=== PATIENT | male | born 1945 | race Caucasian/White ===

== ENCOUNTER 2024-01-12 08:16 | Emergency (ER) | payer MEDICARE, BC, SELFPAY ==
[2024-01-12] VITALS (21 sets, daily range): BP systolic 118–153; BP diastolic 67–87; PULSE 60–72; RESP 26; TEMP 36.4; O2SAT 84–99; BMI 35.3
--- NOTE | 2024-01-12 08:35 | ED_ITS ---
HPI - SOB/Dyspnea General Time Seen by Provider: 08:35 Date Seen: 01/12/24 Chief Complaint: Shortness of Breath/Dyspnea Stated Complaint: trouble breathing Time Seen by Provider: 01/12/24 08:34 Source: patient and RN notes reviewed Mode of arrival: ambulatory Limitations: no limitations History of Present Illness HPI Narrative: 78-year-old male who presents today with shortness of breath. Patient says this is been going on for the past 3 weeks but then notes that he was seen by his primary doctor for this a year ago. Has not noticed any recent changes in his s hortness of breath, and mostly just notices dyspnea on exertion. He does not note any shortness of breath when he is sleeping although he does have a CPAP that he wears. He denies chest pain or lower extremity swelling. Denies nausea vomiting. Reports history of previous lobectomy for lung cancer and long history of smoking although quit years ago. Related Data Home Medications Medication Instructions Recorded Confirmed allopurinol 100 mg tablet 100 mg PO QDAY 10/29/23 11/18/23 amlodipine 10 mg tablet 10 mg PO QDAY 10/29/23 11/18/23 apixaban 2.5 mg tablet (Eliquis) 2.5 mg PO BID 10/29/23 11/18/23 atorvastatin 10 mg tablet 10 mg PO QDAY 10/29/23 11/18/23 empagliflozin 10 mg tablet 10 mg PO QAM 10/29/23 11/18/23 furosemide 20 mg tablet 20 mg PO QAM 10/29/23 11/18/23 glipizide 5 mg tablet 5 mg PO QDAY 10/29/23 11/18/23 hydralazine 10 mg tablet 10 mg PO BID 10/29/23 11/18/23 lisinopril 5 mg tablet 5 mg PO QDAY 10/29/23 11/18/23 tamsulosin 0.4 mg capsule (Flomax) 0.4 mg PO QDAY 10/29/23 11/18/23 Previous Rx's Medication Instructions Recorded albuterol sulfate 90 mcg/actuation 2 inh inhalation Q4H PRN shortness 01/12/24 aerosol inhaler of breath or wheezing #8.5 grams fluticasone propionate 50 2 spray intranasal DAILY #16 grams 01/12/24 mcg/actuation nasal spray,suspension (Flonase Allergy Relief) furosemide 40 mg tablet (Lasix) 40 mg PO BID #6 tabs 01/12/24 prednisone 20 mg tablet 40 mg (2 x 20 mg) PO DAILY #10 tabs 01/12/24 Allergies Allergy/AdvReac Type Severity Reaction Status Date / Time simvastatin Allergy Unknown Verified 11/18/23 09:13 [facility] Social History Smoking Status: Former smoker Do you use any of these nicotine containing products: None How often do you have a drink containing alcohol: never How often do you have six or more drinks on one occasion: Never AUDIT-C Alcohol total score: 0 Non-prescribed substance use: denies use service: No Exam Narrative: Exam Narrative: General: Well-developed and well-nourished, no acute distress Head: Atraumatic and normocephalic Eyes: Pupils are equal reactive, extraocular motions intact, conjunctiva clear ENT: External nose and ears are normal, posterior pharynx without erythema or exudate Neck: No midline cervical tenderness, full spontaneous range of motion the neck, trachea midline, no adenopathy Heart: Regular rate and rhythm no murmurs or thrills Lungs: Trace expiratory wheezes with some mild rubs or crackles bilaterally Abdomen: Soft, nontender, nondistended with active bowel sounds Musculoskeletal: No tenderness, deformity, or edema Neurologic: Awake, alert, and oriented x3, no gross focal neurologic deficits, cranial nerves intact as tested Psych: Mood and affect are appropriate Skin: No rashes Const: Vital Signs, click to edit/add: Vital Signs - 24 hr 01/12/24 08:28 01/12/24 08:39 01/12/24 08:45 Temperature 97.6 F Pulse Rate 61 60 Pulse Rate [Pulse Oximeter] 72 Respiratory Rate 26 H Blood Pressure Blood Pressure [Le ft Upper Arm] 153/72 H Pulse Oximetry 90 93 93 Oxygen Delivery Me thod Room Air 01/12/24 09:00 01/12/24 09:15 01/12/24 09:37 Temperature Pulse Rate 60 62 62 Pulse Rate [Pulse Oximeter] Respiratory Rate Blood Pressure Blood Pressure [Le ft Upper Arm] Pulse Oximetry 87 L 85 L 89 Oxygen Delivery Me thod 01/12/24 09:38 01/12/24 09:45 01/12/24 10:00 Temperature Pulse Rate 63 60 62 Pulse Rate [Pulse Oximeter] Respiratory Rate Blood Pressure 133/87 Blood Pressure [Le ft Upper Arm] Pulse Oximetry 87 L 99 92 Oxygen Delivery Me thod 01/12/24 10:01 01/12/24 10:15 01/12/24 10:30 Temperature Pulse Rate 61 61 60 Pulse Rate [Pulse Oximeter] Respiratory Rate Blood Pressure 131/68 Blood Pressure [Le ft Upper Arm] Pulse Oximetry 90 93 85 L Oxygen Delivery Me thod 01/12/24 10:31 01/12/24 10:31 01/12/24 10:32 Temperature Pulse Rate 60 60 60 Pulse Rate [Pulse Oximeter] Respiratory Rate Blood Pressure 118/73 118/73 Blood Pressure [Le ft Upper Arm] Pulse Oximetry 87 L 87 L 88 Oxygen Delivery Ny thod 01/12/24 10:45 01/12/24 11:00 01/12/24 11:01 Temperature Pulse Rate 60 60 60 Pulse Rate [Pulse Oximeter] Respiratory Rate Blood Pressure 121/67 Blood Pressure [Le ft Upper Arm] Pulse Oximetry 86 L 85 L 84 L Oxygen Delivery Ny thod Course Course ED Course: Patient seen examined. Reviewed prior urgent care visits from October 29 in November 18 when patient was seen with cough and lower respiratory tract infection. Patient presents today with chronic shortness of breath, no acute worsening or changes. On exam here, oxygen saturation 90% when patient walks in but 95% at the time that I evaluated him. No difficulty talking, no respiratory distress. Trace expiratory wheezes as well as some fine rubs. Symptoms could be from undiagnosed COPD, pulmonary edema or heart failure also possible. Consider pulmonary hypertension. Labs and chest x-ray ordered along with DuoNeb. Reevaluation(s) Time of Reevaluation #1: 10:01 Reevaluation #1: Labs ordered and independently interpreted by me with normal CBC, negative age adjusted D-dimer. Creatinine slightly elevated at 2, unsure what patient's baseline is no prior, BNP elevated at 2460, chest x-ray is pending but concern for possible mild heart failure. Time of Reevaluation #2: 10:30 Reevaluation #2: Chest x-ray independently interpreted by me with hyperinflation of the right lung, postoperative changes on the left and question pleural effusion. Appears fairly stable compared to prior. Time of Reevaluation #3: 11:26 Reevaluation #3: Patient rechecked. He says his breathing feels much better after his nebulizer treatment. We discussed findings today. With elevated BNP, concern for possible mild heart failure but with marked improvement with nebulizer treatment, COPD would be likely. Patient started on albuterol inhaler, increase Lasix for the weekend, and also prednisone burst. Follow-up with primary care next week. Vital Signs Vital signs: Initial Vital Signs Temperature 97.6 F 01/12/24 08:28 Temperature Source Temporal Artery Scan 01/12/24 08:28 Pulse Rate 72 01/12/24 08:28 Respiratory Rate 26 H 01/12/24 08:28 Blood Pressure 153/72 H 01/12/24 08:28 Blood Pressure Mean 99 01/12/24 08:28 Pulse Oximetry 90 01/12/24 08:28 Oxygen Delivery Method Room Air 01/12/24 08:28 Vital Signs Temperature 97.6 F 01/12/24 08:28 Pulse Rate 72 01/12/24 08:28 Respiratory Rate 26 H 01/12/24 08:28 Blood Pressure 153/72 H 01/12/24 08:28 Pulse Oximetry 90 01/12/24 08:28 Oxygen Delivery Method Room Air 01/12/24 08:28 Temperature 97.6 F 01/12/24 08:28 Pulse Rate 60 01/12/24 11:01 Respiratory Rate 26 H 01/12/24 08:28 Blood Pressure 121/67 01/12/24 11:01 Pulse Oximetry 84 L 01/12/24 11:01 Oxygen Delivery Method Room Air 01/12/24 08:28 Medications Administered Medications: Discontinued Medications Generic Name Dose Route Start Last Admin Trade Name Clyde PRN Reason Stop Dose Admin Albuterol/Ipratropium 1 neb 01/12/24 08:48 01/12/24 09:40 Iprat-Albut 0.5-2.5 Mg/3 Ml Neb IH 01/12/24 08:49 1 neb ONCE ONE Administration MDM - SOB/Dyspnea Lab Data Labs: Lab Results 01/12/24 01/12/24 Range/Units 09:10 09:20 WBC 5.53 (4.50-11.00) K/uL RBC 4.00 L (4.30-5.90) m/uL Hgb 12.0 L (13.5-17.5) gm/dL Hct 37.5 (37.0-53.0) % MCV 94 (80-100) fL MCH 30 (26-34) pg MCHC 32 (32-36) gm/dL RDW Coeff of Justyna 15.1 (11.5-15.5) % Plt Count 143 (140-440) K/uL Neut % (Auto) 77.2 H (42.0-72.0) % Lymph % (Auto) 12.8 L (20-44) % Wallace % (Auto) 7.4 (0.0-11.0) % Eos % (Auto) 2.2 (0.0-7.0) % Baso % (Auto) 0.2 (0.0-3.0) % Neut # (Auto) 4.30 (1.7-7.0) K/uL Lymph # (Auto) 0.70 L (0.90-2.90) K/uL Wallace # (Auto) 0.40 (0.00-0.90) K/UL Eos # (Auto) 0.12 (0.00-0.50) K/uL Baso # (Auto) 0.01 (0.00-0.30) K/uL Abs Immat Gran (auto) 0.01 (0.00-0.30) K/uL Imm/Tot Granulo (auto) 0.2 % D-Dimer Quant (PE/DVT) 0.80 H (0.00-0.50) ug/ml Sodium 137 (135-149) mmol/L Potassium 4.0 (3.6-5.1) mmol/L Chloride 105 (96-114) mmol/L Carbon Dioxide 22 (20-32) mmol/L Anion Gap 10 (7-15) mEq/L BUN 38 H (7-30) mg/dL Creatinine 2.0 H (0.5-1.5) mg/dL Estimated Creat Clear 32.33 Estimated GFR 33 ml/min Glucose 251 H (60-115) mg/dL Calcium 9.1 (8.4-10.6) mg/dL Magnesium 2.0 (1.5-2.6) mg/dL NT-Pro-B Natriuret Pep 2460 pg/mL SARS-CoV-2 (PCR) Negative SARS-CoV-2 (Negative) Influenza Type A (PCR) Negative PCR FLU A (Negative) Influenza Type B (PCR) Negative PCR FLU B (Negative) RSV (PCR) Negative PCR RSV (Negative) Discharge Plan Discharge Clinical Impression: ENRIQUEZ (dyspnea on exertion), COPD (chronic obstructive pulmonary disease) Patient Disposition: Home, Self-Care Condition: Stable Instructions: COPD (Chronic Obstructive Pulmonary Disease) (DC), Dyspnea (ED) Additional Instructions: Increased dose of Lasix as prescribed. Stop your usual Lasix while taking the increased dose Follow-up with your primary care doctor next week Activity Level: Activity as Tolerated Discharge Diet: Regular Prescriptions: New furosemide [Lasix] 40 mg tablet 40 mg PO BID Qty: 6 0RF prednisone 20 mg tablet 40 mg PO DAILY Qty: 10 0RF fluticasone propionate [Flonase Allergy Relief] 50 mcg/actuation spray,suspension 2 spray intranasal DAILY Qty: 16 0RF Rx Instructions: administer into each nostril albuterol sulfate 90 mcg/actuation HFA aerosol inhaler 2 inh inhalation Q4H PRN (Reason: shortness of breath or wheezing) Qty: 8.5 0RF No Action hydralazine 10 mg tablet 10 mg PO BID furosemide 20 mg tablet 20 mg PO QAM empagliflozin 10 mg tablet 10 mg PO QAM glipizide 5 mg tablet 5 mg PO QDAY amlodipine 10 mg tablet 10 mg PO QDAY Eliquis 2.5 mg tablet 2.5 mg PO BID atorvastatin 10 mg tablet 10 mg PO QDAY tamsulosin [Flomax] 0.4 mg capsule 0.4 mg PO QDAY lisinopril 5 mg tablet 5 mg PO QDAY allopurinol 100 mg tablet 100 mg PO QDAY Follow Up/Referrals: Provider,Not a Local [Primary Care Provider] - Stand Alone Forms: [facility] Info Instructions
--- NOTE | 2024-01-12 08:46 | XR_ITS ---
Patient: KAREN KHOURY Facility:?[facility] Patient ID:?[id number] Site Patient ID:?[id number]. Site :?[id number] Study:?XRay-Chest 2 VIEW-01/12/2024 10:33:20 AM Ordering Physician:?DR. HOWARD Final Report: INDICATION: TROUBLE BREATHING TECHNIQUE: Chest 2 views. COMPARISON: Chest x-ray October 29, 2023. FINDINGS: Cardiovascular and mediastinum: Heart size and vasculature are normal in caliber and appearance. 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 Right lung and pleural space are clear. Bones and soft tissues: No significant findings. IMPRESSION: No significant interval change when compared to prior. 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 Dictated by Karsten Sprague MD @ 01/12/2024 10:57:24 AM Signed by:?Karsten Sprague MD @01/12/2024 10:57:24 AM (Electronic Signature)
[2024-01-12 09:18] LABS: Basophils Absolute Auto 0.01 K/uL (0.00-0.30); Basophils Percent Auto 0.2 % (0.0-3.0); Eosinophils Absolute Auto 0.12 K/uL (0.00-0.50); Eosinophils Percent Auto 2.2 % (0.0-7.0); Hematocrit 37.5 % (37.0-53.0); Immature Granulocytes Abs Auto 0.01 K/uL (0.00-0.30); Immature Granulocytes Pct Auto 0.2 %; Lymphocytes Percent Auto 12.8 % (20-44); Mean Corpuscular HGB Conc 32 gm/dL (32-36); Mean Corpuscular Hemoglobin 30 pg (26-34); Mean Corpuscular Volume 94 fL (80-100); Monocytes Percent Auto 7.4 % (0.0-11.0); Neutrophils Percent Auto 77.2 % (42.0-72.0); Platelet Count* 143 K/uL (140-440); RDW Coefficient of Variation % 15.1 % (11.5-15.5); White Blood Count* 5.53 K/uL (4.50-11.00)
[2024-01-12 09:23] LABS: Slide Review Reflex No
[2024-01-12 09:31] LABS: Chloride* 105 mmol/L (96-114); Sodium* 137 mmol/L (135-149)
[2024-01-12 09:34] LABS: Anion Gap 10 mEq/L (7-15); Carbon Dioxide* 22 mmol/L (20-32); Est. Creatinine Clearance* 32.33; Estimated Glomerular Filt Rate 33 ml/min
[2024-01-12 09:35] LABS: Blood Urea Nitrogen* 38 mg/dL (7-30); Calcium* 9.1 mg/dL (8.4-10.6); Glucose* 251 mg/dL (60-115)
[2024-01-12] MEDS: IPRAT-ALBUT 0.5-2.5 MG/3 ML NEB 1 NEB IH (09:40)
[2024-01-12 09:50] LABS: NT Pro B Type NatriureticPept* 2460 pg/mL
[2024-01-12 10:06] LABS: PCR FLU A Negative PCR FLU A (Negative); PCR FLU B Negative PCR FLU B (Negative); PCR RSV Negative PCR RSV (Negative); SARS PCR* Negative SARS-CoV-2 (Negative)
== END 2024-01-12 11:43 | disposition home or self-care (01) ==
PROVIDERS: Emergency Provider Family Medicine
DX: R06.09 Other forms of dyspnea (principal); J44.9 Chronic obstructive pulmonary disease, unspecified
CPT/HCPCS: 36415; 71046; 80048; 83735; 83880; 85025; 85379; 87631; 93005; 94640; 99284; 99285